=== PATIENT | male | born 1995 | race Caucasian/White ===

== ENCOUNTER 2020-01-18 19:20 | Emergency (ER) | payer SELFPAY ==
--- NOTE | 2020-01-18 20:38 | RADIOLOGY REPORT (SQ) ---
EXAM DESCRIPTION: X-RAY KNEE 1-2 VIEWS CLINICAL HISTORY: 24 years Male positive deformity COMPARISON: None TECHNIQUE: AP (tunnel) and crosstable lateral radiographs of the left knee were obtained at 1953 hours on 01/18/2020. FINDINGS/IMPRESSION: There is an acute displaced transverse fracture of the mid patella caudal to its transverse midline with roughly 3.5 cm of proximal retraction of the upper fragment and 1.5 cm of caudal retraction of the lower fragment. There is at least a moderate-sized suprapatellar bursa effusion.
--- NOTE | 2020-01-18 21:19 | ER Document Report ---
ED General - General Chief Complaint: Knee Injury Stated Complaint: KNEE PAIN Time Seen by Provider: 01/18/20 19:53 TRAVEL OUTSIDE OF THE [place] IN LAST 30 DAYS: No - HPI Notes: Previously healthy 24-year-old male slipped while walking on a wet sidewalk in the rain and fell onto his left knee noting immediate deformity. He was brought to the emergency department by EMS and received 2 doses of fentanyl in route. He describes his pain is 2/10 currently. He is not able to flex or extend the knee. He denies any other injuries. - Related Data Allergies/Adverse Reactions: No Known Allergies Allergy (Unverified 01/18/20 19:22) Past Medical History - General Information source: Patient, Friend - Social History Smoking Status: Former Smoker Family History: Reviewed & Not Pertinent Patient has suicidal ideation: No Patient has homicidal ideation: No Review of Systems - Review of Systems Notes: 10 point ROS negative except as marked above and in HPI. Physical Exam - Vital signs Vitals: Temp Pulse Resp BP Pulse Ox 98.6 F 88 18 142/99 H 97 01/18/20 19:23 01/18/20 19:23 01/18/20 19:23 01/18/20 19:23 01/18/20 19:23 - Notes Notes: GENERAL: Male patient appearing approximately stated age with left knee held in 90 degrees of flexion and appearing in moderate discomfort. SKIN: Good turgor no rashes. HEAD: Normocephalic atraumatic. EYES: PERRLA. EOMI. Conjunctivae and sclerae clear. EARS: CANALS AND TMS CLEAR. NOSE: CLEAR. MOUTH: Moist mucosa. Good dentition. No stridor or edema. No drooling. NECK: Supple. No masses or thyromegaly. No adenopathy. Carotids 2+ without bruits. No JVD. BACK: Symmetrical without tenderness. CHEST: Respirations unlabored. Breath sounds clear and symmetrical. HEART: Regular rhythm. No murmur gallop or rub. ABDOMEN: Soft nontender without masses, organomegaly or rebound. Bowel sounds normally active. No bruits. GENITALIA: Deferred. EXTREMITIES: Left lower extremity shows knee held in flexed position to 90 degrees. There is a moderate effusion palpable anteriorly and superiorly there is diffuse tenderness anteriorly. Patient is unable to flex or extend actively or passively. Distal lower extremity pulses are 3+ and symmetrical. Normal distal cap refill. Sensorimotor function is intact distally. NEUROLOGICAL: GCS 15. Alert and oriented x3. Normal gait. Fluent speech. Cranial nerves II through XII intact. Sensorimotor and cerebellar normal. Normal tone. PSYCHIATRIC: Appropriate affect. Course - Re-evaluation Re-evalutation: 01/18/20 21:34 Case discussed with orthopedist on-call, Dr. Underwood, who indicates patient will need elective surgical repair. He advises that we place knee immobilizer put patient on crutches and sent him out with pain meds for office follow-up tomorrow. - Vital Signs Vital signs: Temp Pulse Resp BP Pulse Ox 98.7 F 88 18 137/86 H 98 01/18/20 21:58 01/18/20 21:58 01/18/20 21:58 01/18/20 21:58 01/18/20 21:58 Procedures - Immobilization Left Knee Time completed: 22:17 Pre-Proc Neuro Vasc Exam: Normal Immobilizer type: Cristofer wrap, Crutches, Knee immobilizer Performed by: PCT Post-Proc Neuro Vasc Exam: Normal Discharge - Discharge Clinical Impression: Closed patellar fracture left Condition: Stable Disposition: HOME, SELF-CARE Instructions: Use of Crutches ([facility]), Ice & Elevation ([facility]), Knee Immobilizing Splint ([facility]) Prescriptions: Oxycodone HCl/Acetaminophen [Percocet 5-325 mg Tablet] 2 tab PO Q6H PRN 5 Days #20 tablet PRN Reason: Referrals: GHADA UNDERWOOD MD [ACTIVE PROVISIONAL STAFF] - Follow up as needed
[2020-01-18] MEDS ORDERED: FENTANYL CITRATE INJ/PF 100 MCG/2 ML AMPUL IV ONE (21:31)
[2020-01-18 23:01] VITALS: BP 125/75
== END 2020-01-18 22:45 | disposition home or self-care (01) ==
LOC: ER 19:20
DX: S82.032A Displaced transverse fracture of left patella, initial encounter for closed fracture (principal); W01.0XXA Fall on same level from slipping, tripping and stumbling without subsequent striking against object, initial encounter; Y93.01 Activity, walking, marching and hiking; Y92.480 Sidewalk as the place of occurrence of the external cause; Y99.0 Civilian activity done for income or pay; Z87.891 Personal history of nicotine dependence
CPT/HCPCS: 99283

== ENCOUNTER 2020-01-24 07:05 | Day surgery (SDC) | payer SELFPAY ==
[~2020-01-24 07:05] MED LIST: CEFAZOLIN SODIUM 2 GM in DEXTROSE 5%-WATER 100 ML IV PRN; FENTANYL CITRATE INJ/PF 100 MCG/2 ML AMPUL ONE; MIDAZOLAM 2 MG/2 ML INJ ONE; PROPOFOL INJ 200 MG/20 ML VIAL IV ONE
[2020-01-24 07:46] LABS: ABSOLUTE EOSINOPHILS # (AUTO) 0.1 10^3/uL (0.0-0.6); ABSOLUTE LYMPHOCYTES (AUTO) 1.3 10^3/uL (0.5-4.7); ABSOLUTE MONOCYTES (AUTO) 0.9 10^3/uL (0.1-1.4); ABSOLUTE NEUT (AUTO) 4.9 10^3/uL (1.7-8.2); TOTAL CELLS COUNTED % (AUTO) 100 %
[2020-01-24 08:01] LABS: ANION GAP 11 (5-19); BASOPHILS % (AUTO) 0.6 % (0-2); BLOOD UREA NITROGEN 18 mg/dL (7-20); CALCIUM 9.3 mg/dL (8.4-10.2); CARBON DIOXIDE 28 mmol/L (22-30); CHLORIDE 101 mmol/L (98-107); EOSINOPHILS % (AUTO) 1.8 % (0-6); GLUCOSE 98 mg/dL (75-110); HEMATOCRIT 31.4 % (37.9-51.0); HEMOGLOBIN 11.2 g/dL (13.5-17.0); LYMPHOCYTES % (AUTO) 18.5 % (13-45); MEAN CORPUSCULAR HGB CONC 35.7 g/dL (32.0-36.0); MEAN CORPUSCULAR VOLUME 90 fl (80-97); MONOCYTES % (AUTO) 11.7 % (3-13); PLATELET COUNT 211 10^3/uL (150-450); POTASSIUM 4.3 mmol/L (3.6-5.0); RED CELL DISTRIBUTION WIDTH 12.6 % (11.5-14.0); SEGMENTED NEUTROPHILS % (AUTO) 67.4 % (42-78); WHITE BLOOD COUNT 7.3 10^3/uL (4.0-10.5)
[2020-01-24] MEDS ORDERED: MORPHINE SULFATE 10 MG/ML INJ IV PRN (08:28)
[2020-01-24] MEDS ORDERED: ONDANSETRON HCL INJ/PF 4 MG/2 ML SDV IV PRN (08:28)
[2020-01-24] MEDS ORDERED: DIPHENHYDRAMINE HCL 50 MG/ML VIAL IV PRN (08:28)
[2020-01-24] MEDS ORDERED: MEPERIDINE HCL/PF INJ 25 MG/1 ML DISP.SYRIN IV PRN (08:28)
[2020-01-24] MEDS ORDERED: FENTANYL CITRATE INJ/PF 100 MCG/2 ML AMPUL IV PRN ×3 (08:28)
[2020-01-24] MEDS ORDERED: BUPIVACAINE HCL 0.5 % INJ/PF 30 ML SDV ONE (08:49)
[2020-01-24] MEDS ORDERED: BUPIVACAINE HCL 0.5%-EPI 1:200000 INJ/PF 30 ML VIAL ONE (08:49)
[2020-01-24] MEDS ORDERED: LIDOCAINE 1%/EPINEPHRINE INJ 20 ML VIAL ONE (08:49)
--- NOTE | 2020-01-24 10:16 | Discharge Summary ---
Discharge Summary (SDC) - Discharge Final Diagnosis: Left patella fracture Date of Surgery: 01/24/20 Discharge Date: 01/24/20 Condition: Good Treatment or Instructions: Maintain knee immobilizer at all times. Weightbearing as tolerated. Discharge Diet: Regular Discharge Activity: Balance Activity w/Rest, No tub bath Home Care Assistance: None Needed Adaptive Devices on Discharge: Axillary Crutches Report the Following to Your Physician Immediately: Shortness of Breath, Fever over 101 Degrees, Drainage-Foul Smelling
--- NOTE | 2020-01-24 10:18 | Operative Report ---
Operative Report DATE OF SURGERY: 01/24/20 PREOPERATIVE DIAGNOSIS: Left patella fracture OPERATION: Open reduction internal fixation left patella fracture SURGEON: ELAINE OLIVA ANESTHESIA: GA ESTIMATED BLOOD LOSS: 50 PROCEDURE: With the patient supine on the operating table the left lower extremities prepped and draped in a sterile fashion. Limb is elevated for exsanguination tourniquet inflated to 280 torr. A longitudinal incision was made over the patella and taken down to the retinaculum. The fracture is identified. Hematoma is evacuated. The fracture was reduced anatomically with a tenaculum. This is verified by fluoroscopy. 2 x .062 K wires were then placed from distal to proximal along the pole of the patella. A [id number] is then performed using FiberWire tape. The reduction is again checked fluoroscopically and felt to be adequate. The medial lateral retinaculum were repaired using #2 FiberWire. The tourniquet is deflated. The wound is irrigated. Hemostasis obtained with electrocautery. The wound is closed in layers using opted Vicryl followed by keaton. A sterile compressive dressing and knee below knee immobilizer applied and patient is returned to the PACU in satisfactory condition.
[2020-01-24] MEDS: HYDROMORPHONE HCL INJ/PF 2 MG/ML AMPULE ONE ×2 (10:45→10:55)
[2020-01-24] MEDS ORDERED: ACETAMINOPHEN 1,000 MG/100 ML RTUPB IV ONE (10:46)
[2020-01-24] MEDS ORDERED: OXYCODONE-ACETAMINOPHEN 5-325 MG TABLET PO PRN (10:52)
--- NOTE | 2020-01-24 10:52 | RADIOLOGY REPORT (SQ) ---
EXAM DESCRIPTION: KNEE LEFT 2 VIEWS; NO CHG FLUORO COMPLETED DATE/TIME: 01/24/2020 10:42 am REASON FOR STUDY: OPEN REDUCTION INTERNAL FIXATION LEFT PATELLA ASSISTED WITH FLUORO IN OR S82.002A UNSP FRACTURE OF LEFT PATELLA, INIT FOR CLOS FX COMPARISON: None. FLUOROSCOPY TIME: 0.1 minutes Spot images saved to PACS. TECHNIQUE: Intra-operative images acquired during surgical procedure to evaluate progress. NUMBER OF IMAGES: 2 LIMITATIONS: None. FINDINGS: Fluoroscopy was provided for intraoperative procedure. Please refer to the operative repo rt for further discussion. IMPRESSION: IMAGE(S) OBTAINED DURING PROCEDURE. COMMENT: Quality ID [id number]: Final reports for procedures using fluoroscopy that document radiation exp osure indices, or exposure time and number of fluorographic images (if radiation exposure indices are not available) Please consult full operative report of the attending physician for description of the procedure. TECHNICAL DOCUMENTATION: JOB ID: [id number] 2010 [employer]- All Rights Reserved Reading location - IP/workstation name: [email or web address]
--- NOTE | 2020-01-24 10:52 | RADIOLOGY REPORT (SQ) ---
EXAM DESCRIPTION: KNEE LEFT 2 VIEWS; NO CHG FLUORO COMPLETED DATE/TIME: 01/24/2020 10:42 am REASON FOR STUDY: OPEN REDUCTION INTERNAL FIXATION LEFT PATELLA ASSISTED WITH FLUORO IN OR S82.002A UNSP FRACTURE OF LEFT PATELLA, INIT FOR CLOS FX COMPARISON: None. FLUOROSCOPY TIME: 0.1 minutes Spot images saved to PACS. TECHNIQUE: Intra-operative images acquired during surgical procedure to evaluate progress. NUMBER OF IMAGES: 2 LIMITATIONS: None. FINDINGS: Fluoroscopy was provided for intraoperative procedure. Please refer to the operative repo rt for further discussion. IMPRESSION: IMAGE(S) OBTAINED DURING PROCEDURE. COMMENT: Quality ID [id number]: Final reports for procedures using fluoroscopy that document radiation exp osure indices, or exposure time and number of fluorographic images (if radiation exposure indices are not available) Please consult full operative report of the attending physician for description of the procedure. TECHNICAL DOCUMENTATION: JOB ID: [id number] 2010 [employer]- All Rights Reserved Reading location - IP/workstation name: [email or web address]
[2020-01-24] MEDS ORDERED: OXYCODONE-ACETAMINOPHEN 5-325 MG TABLET ONE (11:00)
[2020-01-24] MEDS ORDERED: MEPERIDINE HCL/PF INJ 25 MG/1 ML DISP.SYRIN ONE (11:11)
[2020-01-24] MEDS ORDERED: TRANEXAMIC ACID INJ/PF 1,000 MG/10 ML SDV ONE (11:12)
[2020-01-24] MEDS ORDERED: TRANEXAMIC ACID INJ/PF 1,000 MG/10 ML SDV IV ONE (11:30)
[2020-01-24] MEDS ORDERED: DIPHENHYDRAMINE HCL 50 MG/ML VIAL ONE (12:03)
[2020-01-24 13:49] VITALS: BP 142/84
[2020-01-24] MEDS ORDERED: DEXAMETHASONE SOD PHOSPHATE INJ 4 MG/1 ML VIAL ONE (13:55)
[2020-01-24] MEDS ORDERED: KETOROLAC TROMETHAMINE 60 MG/2 ML SDV ONE (13:55)
[2020-01-24] MEDS ORDERED: ONDANSETRON HCL INJ/PF 4 MG/2 ML SDV ONE (13:55)
== END 2020-01-24 13:10 | disposition home or self-care (01) ==
LOC: OROUT 07:05
PROVIDERS: ATTEND Orthopaedic Surgery
DX: S82.032A Displaced transverse fracture of left patella, initial encounter for closed fracture (principal); W19.XXXA Unspecified fall, initial encounter
CPT/HCPCS: 36415; 85025; 80048; 73560; 01392; 27524; C1713; J2250; J3490 ×2; J0690; J1100; J1200; J1885; J3010; J2175; J1170; J2405; J7060; J2704; J0131